=== PATIENT | female | born 1935 | race Caucasian/White ===

== ENCOUNTER 2016-12-15 21:56 | Inpatient (IN) | payer OTHER ==
[~2016-12-15] VITALS: Ht 157.5 cm; Wt 78.0 kg
[2016-12-15 22:33] VITALS: BP_SYST 139
[2016-12-16] MEDS ORDERED: MORPHINE 4 MG/ML INJ. SYRINGE IVP ONE (00:45)
[2016-12-16 00:54] LABS: BASOPHILS % (AUTO) 0.8 % (0.0-2.0); EOSINOPHILS # (AUTO) 0.1 K/uL (0.0-0.4); EOSINOPHILS % (AUTO) 1.6 % (0.0-4.0); HEMATOCRIT 33.2 % (36-48); HEMOGLOBIN 10.8 g/dL (12.0-16.0); LYMPHOCYTES % (AUTO) 18.3 % (20.5-51.5); MEAN CORPUSCULAR HEMOGLOBIN 25 pg (27-31); MEAN CORPUSCULAR HGB CONC 33 % (32-36); MEAN CORPUSCULAR VOLUME 75 fL (79.0-98.0); MONOCYTES # (AUTO) 0.4 K/uL (0.0-1.0); MONOCYTES % (AUTO) 6.3 % (1.7-9.3); NEUTROPHILS # (AUTO) 4.2 K/uL (1.8-7.7); PLATELET COUNT (AUTO) 194 K/uL (130-430); WHITE BLOOD COUNT (AUTO) 5.7 K/uL (4.8-10.8)
[2016-12-16 00:59] LABS: ANION GAP 1 (5-15); CHLORIDE 107 mmol/L (98-107); CREATININE 0.92 mg/dL (0.55-1.30); GLUCOSE 106 mg/dL (70-99); SODIUM SERUM 134 mmol/L (136-145); UREA NITROGEN, BLOOD 23 mg/dL (8-21)
[2016-12-16 01:03] LABS: ALANINE AMINOTRANSFERASE 18 U/L (12-78); ALBUMIN 2.9 g/dL (3.4-4.8); AMYLASE 49 U/L (0-100); ASPARTATE AMINOTRANSFERASE 37 U/L (10-37); LIPASE 179 U/L (73-393); TOTAL BILIRUBIN 0.9 mg/dL (0.0-1.0); TOTAL PROTEIN, SERUM 7.4 g/dL (6.4-8.3)
[2016-12-16 01:25] LABS: BILIRUBIN,URINE NEGATIVE (NEGATIVE); BLOOD, URINE 1+ (NEGATIVE); CLARITY/URINE SL HAZY (CLEAR); COLOR,URINE YELLOW (YELLOW); GLUCOSE,URINE NEGATIVE (NEGATIVE); KETONES,URINE NEGATIVE (NEGATIVE); LEUKOCYTE ESTERASE ,URINE NEGATIVE (NEGATIVE); NITRITE, URINE NEGATIVE (NEGATIVE); PH,URINE 5.5 (5.0-8.0); PROTEIN URINE NEGATIVE (NEGATIVE); UROBILINOGEN,URINE 0.2 (0.2-1.0)
[2016-12-16 01:40] LABS: BACTERIA,URINE RARE /HPF (None Seen); WBC,URINE 0-3 /HPF (0-3)
[2016-12-16] MEDS ORDERED: ONDANSETRON HCL 4 MG/2 ML VIAL IVP PRN (04:00)
[2016-12-16] MEDS ORDERED: MORPHINE 4 MG/ML INJ. SYRINGE IVP PRN ×2 (04:00→16:15)
[2016-12-16 04:21] VITALS: BP_SYST 126
[2016-12-16 04:22] VITALS: BP_SYST 126
[2016-12-16 08:00] VITALS: BP_SYST 119
[2016-12-16 12:56] VITALS: BP_SYST 141
[2016-12-16] MEDS ORDERED: LISI-600 PO (14:34)
[2016-12-16] MEDS ORDERED: LEVO100T9 PO (14:34)
[2016-12-16] MEDS ORDERED: LISINOPRIL 20 MG TABLET PO ONE (15:15)
[2016-12-16] MEDS ORDERED: LEVOTHYROXINE SODIUM 0.1 MG TABLET PO ONE (15:15)
[2016-12-16 15:48] VITALS: BP_SYST 146
[2016-12-16] MEDS ORDERED: KETOROLAC TROMETHAMINE 15 MG VIAL IVP PRN (16:30)
[2016-12-16 19:45] VITALS: BP_SYST 100
[2016-12-17 00:08] VITALS: BP_SYST 105; BP_SYST 118
[2016-12-17 04:12] VITALS: BP_SYST 95
[2016-12-17] MEDS: LEVOTHYROXINE SODIUM 0.1 MG TABLET PO SCH (06:21)
[2016-12-17 07:17] LABS: BASOPHILS % (AUTO) 0.7 % (0.0-2.0); EOSINOPHILS # (AUTO) 0.1 K/uL (0.0-0.4); EOSINOPHILS % (AUTO) 2.6 % (0.0-4.0); HEMATOCRIT 30.9 % (36-48); HEMOGLOBIN 9.9 g/dL (12.0-16.0); LYMPHOCYTES % (AUTO) 20.5 % (20.5-51.5); MEAN CORPUSCULAR HEMOGLOBIN 24 pg (27-31); MEAN CORPUSCULAR HGB CONC 32 % (32-36); MEAN CORPUSCULAR VOLUME 76 fL (79.0-98.0); MONOCYTES # (AUTO) 0.4 K/uL (0.0-1.0); MONOCYTES % (AUTO) 7.9 % (1.7-9.3); NEUTROPHILS # (AUTO) 3.4 K/uL (1.8-7.7); NEUTROPHILS % (AUTO) 68.3 % (40.0-70.0); PLATELET COUNT (AUTO) 172 K/uL (130-430); RED BLOOD CELL COUNT(AUTO) 4.06 MIL/uL (4.2-6.2); WHITE BLOOD COUNT (AUTO) 4.9 K/uL (4.8-10.8)
[2016-12-17 07:38] LABS: INR 1.1 (0.8-1.2); PROTHROMBIN TIME 12.3 SECS (9.5-12.5)
[2016-12-17 07:40] LABS: ALANINE AMINOTRANSFERASE 16 U/L (12-78); ALBUMIN 2.3 g/dL (3.4-4.8); ANION GAP 4 (5-15); ASPARTATE AMINOTRANSFERASE 35 U/L (10-37); CALCIUM 8.7 mg/dL (8.4-11.0); CHLORIDE 108 mmol/L (98-107); CREATININE 0.91 mg/dL (0.55-1.30); GLUCOSE 85 mg/dL (70-99); POTASSIUM 4.2 mmol/L (3.5-5.1); SODIUM SERUM 140 mmol/L (136-145); THYROID STIMULATING HORMONE 2.58 uIu/mL (0.34-4.82); TOTAL BILIRUBIN 0.8 mg/dL (0.0-1.0); TOTAL PROTEIN, SERUM 6.3 g/dL (6.4-8.3); UREA NITROGEN, BLOOD 20 mg/dL (8-21)
[2016-12-17 07:50] LABS: IRON (SERUM) 23 mcg/dL (37-145)
[2016-12-17 07:51] LABS: TOTAL IRON BIND. CAPACITY 285 ug/dL (250-450)
[2016-12-17 08:40] VITALS: BP_SYST 119
[2016-12-17] MEDS: LISINOPRIL 20 MG TABLET PO SCH (08:55)
[2016-12-17] MEDS: SOD FERRIC GLUC COMPLEX/SUC 125 MG in NS 100 ML IV SCH (12:27)
[2016-12-17 12:43] VITALS: BP_SYST 109
[2016-12-17 16:22] VITALS: BP_SYST 119
[2016-12-17 19:31] VITALS: BP_SYST 126
[2016-12-18 00:49] VITALS: BP_SYST 126
[2016-12-18 04:42] VITALS: BP_SYST 112
[2016-12-18] MEDS: LEVOTHYROXINE SODIUM 0.1 MG TABLET PO SCH (06:07)
[2016-12-18 07:46] LABS: BASOPHILS % (AUTO) 0.7 % (0.0-2.0); EOSINOPHILS # (AUTO) 0.1 K/uL (0.0-0.4); EOSINOPHILS % (AUTO) 2.5 % (0.0-4.0); HEMATOCRIT 31.5 % (36-48); LYMPHOCYTES % (AUTO) 22.4 % (20.5-51.5); MEAN CORPUSCULAR HEMOGLOBIN 24 pg (27-31); MEAN CORPUSCULAR HGB CONC 32 % (32-36); MEAN CORPUSCULAR VOLUME 76 fL (79.0-98.0); MONOCYTES # (AUTO) 0.4 K/uL (0.0-1.0); MONOCYTES % (AUTO) 8.4 % (1.7-9.3); NEUTROPHILS # (AUTO) 2.8 K/uL (1.8-7.7); PLATELET COUNT (AUTO) 171 K/uL (130-430); RED BLOOD CELL COUNT(AUTO) 4.15 MIL/uL (4.2-6.2); RED CELL DISTRIBUTION WIDTH 20.3 % (9.0-15.0); WHITE BLOOD COUNT (AUTO) 4.3 K/uL (4.8-10.8)
[2016-12-18 07:50] LABS: ALANINE AMINOTRANSFERASE 15 U/L (12-78); ALBUMIN 2.2 g/dL (3.4-4.8); ANION GAP 4 (5-15); ASPARTATE AMINOTRANSFERASE 34 U/L (10-37); CALCIUM 8.6 mg/dL (8.4-11.0); CHLORIDE 109 mmol/L (98-107); CREATININE 0.93 mg/dL (0.55-1.30); GLUCOSE 77 mg/dL (70-99); LIPASE 239 U/L (73-393); POTASSIUM 4.2 mmol/L (3.5-5.1); SODIUM SERUM 141 mmol/L (136-145); TOTAL BILIRUBIN 0.8 mg/dL (0.0-1.0); TOTAL PROTEIN, SERUM 6.1 g/dL (6.4-8.3); UREA NITROGEN, BLOOD 22 mg/dL (8-21)
[2016-12-18 08:18] VITALS: BP_SYST 105
[2016-12-18] MEDS ORDERED: DOCUSATE SODIUM 250 MG CAPSULE PO SCH (09:00)
[2016-12-18] MEDS: LISINOPRIL 20 MG TABLET PO SCH (09:00)
[2016-12-18 09:34] LABS: RETICULOCYTE COUNT 1.7 % (0.5-1.5)
[2016-12-18] MEDS: SOD FERRIC GLUC COMPLEX/SUC 125 MG in NS 100 ML IV SCH (10:54)
[2016-12-18 12:45] VITALS: BP_SYST 135
[2016-12-18] MEDS: MIDAZOLAM HCL 5 MG/5 ML VIAL ONE ×2 (14:04→14:07)
[2016-12-18] MEDS: MEPERIDINE HCL/PF 100 MG/ML AMP ONE ×2 (14:04→14:07)
[2016-12-18 16:18] VITALS: BP_SYST 119
[2016-12-18] MEDS ORDERED: DOCU250C PO (17:21)
[2016-12-18] MEDS ORDERED: PRO40 PO (17:21)
[2016-12-18 19:31] VITALS: BP_SYST 119
[2016-12-19 05:19] LABS: FOLATE (FOLIC ACID) 13.7 ng/mL (>3.0)
[2016-12-19 08:13] LABS: AFP, TUMOR MARKER 4.9 ng/mL (0.0-8.3); HEPATITIS A AB, IgM Negative (Negative); HEPATITIS B CORE AB, IgM Negative (Negative); HEPATITIS B SURFACE AG Negative (Negative)
[2016-12-19 14:09] LABS: FERRITIN 44 ng/mL (15-150)
[2016-12-19 20:20] LABS: ANTI NUCLEAR AB WITH REFLEX Positive (Negative)
[2016-12-20 13:03] LABS: ANTI-SMOOTH MUSCLE AB 33 Units (0-19)
[2016-12-21 11:07] LABS: ATYPICAL pANCA <1:20 titer (Neg:<1:20); CYTOPLASMIC (C-ANCA) <1:20 titer (Neg:<1:20); CYTOPLASMIC (P-ANCA) <1:20 titer (Neg:<1:20)
== END 2016-12-18 20:10 | disposition home or self-care (01) | DRG 445 ==
LOC: SED 21:56 → SMU 12-16 03:49
PROVIDERS: ADMIT Internal Medicine; ATTEND Internal Medicine
PROC: 0DB68ZX Excision of Stomach, Via Natural or Artificial Opening Endoscopic, Diagnostic (ICD-10-PCS; 2016-12-18)
PROC: 0DB98ZX Excision of Duodenum, Via Natural or Artificial Opening Endoscopic, Diagnostic (ICD-10-PCS; principal; 2016-12-18 14:00)
DX: K80.70 Calculus of gallbladder and bile duct without cholecystitis without obstruction (principal); E44.0 Moderate protein-calorie malnutrition; K74.60 Unspecified cirrhosis of liver; R16.1 Splenomegaly, not elsewhere classified; K29.00 Acute gastritis without bleeding; K75.3 Granulomatous hepatitis, not elsewhere classified; I10 Essential (primary) hypertension; Z60.2 Problems related to living alone; E03.9 Hypothyroidism, unspecified; D50.9 Iron deficiency anemia, unspecified; E66.9 Obesity, unspecified; Z68.31 Body mass index [BMI] 31.0-31.9, adult; Z79.899 Other long term (current) drug therapy
CPT/HCPCS: 36415; 43239; 76700-TC; 78226; 80053; 80074; 81000-TC; 82105; 82150-TC; 82607; 82728; 82746; 83516; 83540-TC; 83550-TC; 83690-TC; 83735-TC; 84439; 84443-TC; 85025; 85044-TC; 85610-TC; 86038; 86256; 87081; 88305; 88312; 88313; 96374; 99285; A9537; J2175; J2250; J2270; J2405; J2916; J7030; J7050